=== PATIENT | female | born 1965 | race Caucasian/White ===

== ENCOUNTER → 2017-12-25 | Outpatient (CLI) | payer BC | LOC: BRMIMAGING 14:05 | PROVIDERS: ATTEND Internal Medicine Rheumatology | DX: M54.9 Dorsalgia, unspecified (principal); M25.551 Pain in right hip; M41.9 Scoliosis, unspecified; M51.36 Other intervertebral disc degeneration, lumbar region; M51.37 Other intervertebral disc degeneration, lumbosacral region | CPT/HCPCS: 72070-PO; 72100-PO; 73502-PO ==